=== PATIENT | male | born 1970 | race Caucasian/White ===

== ENCOUNTER 2023-02-17 07:49 | Emergency (ER) | payer OTHER ==
[2023-02-17] MEDS ORDERED: Diphtheria,Pertussis(Acell),Tetanus Vaccine 0.5 ML Syringe IM ONE (08:38)
== END 2023-02-17 09:17 | disposition home or self-care (01) ==
LOC: JD.ED 07:49
DX: S87.82XA Crushing injury of left lower leg, initial encounter (principal); S80.12XA Contusion of left lower leg, initial encounter; W20.8XXA Other cause of strike by thrown, projected or falling object, initial encounter; Y92.59 Other trade areas as the place of occurrence of the external cause; Y99.0 Civilian activity done for income or pay
CPT/HCPCS: 73590-26-LT; 73590-LT; 90471; 90715; 99283; 99283-25